=== PATIENT | female | born 2000 | race Caucasian/White ===

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

== ENCOUNTER 2022-06-12 17:58 | Inpatient (IN) | payer BC, OTHER ==
[2022-06-12 20:31] LABS: CARBON DIOXIDE,CO2 11.1 mmol/L (21.0-32.0); POTASSIUM,K 4.6 mmol/L (3.5-5.1)
[2022-06-12] MEDS ORDERED: Sodium Chloride 0.9% 1,000 ML IV ONE ×2 (20:51)
[2022-06-12] MEDS ORDERED: NS + KCl 20mEq/L 1,000 ML IV SCH (21:00)
[2022-06-12] MEDS ORDERED: Ondansetron 4 MG/2 ML SDV IVPUSH ONE (21:56)
[2022-06-12] MEDS ORDERED: Sodium Bicarbonate 8.4% 50 MEQ/50 ML Syringe IVPUSH ONE (22:17)
[2022-06-12 22:42] LABS: CORONAVIRUS COVID-19 NAA NEGATIVE (NEGATIVE); INFLUENZA A NAA NEGATIVE (NEGATIVE); INFLUENZA B NAA NEGATIVE (NEGATIVE)
[2022-06-12] MEDS ORDERED: Insulin Regular in 0.9 % NACL 100 ML ONE (23:38)
[2022-06-12] MEDS: Insulin Regular in 0.9 % NACL 100 ML IV SCH (23:52)
[2022-06-13] MEDS ORDERED: Acetaminophen 325 MG Tab PO PRN (00:12)
[2022-06-13] MEDS ORDERED: Ondansetron 4 MG/2 ML SDV IVPUSH PRN (00:12)
[2022-06-13] MEDS ORDERED: Albuterol/Ipratropium 3.0-0.5 MG/3 ML Neb Soln NEB PRN (00:12)
[2022-06-13] MEDS ORDERED: Lactated Ringers 1,000 ML IV SCH (00:15)
[2022-06-13] MEDS ORDERED: LORazepam 2 MG/ML SDV IVPUSH PRN (00:21)
[2022-06-13] MEDS ORDERED: Pantoprazole 40 MG in Sodium Chloride 0.9% 10 ML IVPUSH ONE (00:30)
[2022-06-13 01:02] LABS: CARBON DIOXIDE,CO2 11.5 mmol/L (21.0-32.0)
[2022-06-13 01:04] LABS: HEMOGLOBIN A1C 10.3 %
[2022-06-13] MEDS ORDERED: Sodium Phosphate 15 mMole/5 ML SDV IV ONE ×2 (01:43→20:15)
[2022-06-13] MEDS ORDERED: Magnesium Sulfate/Water 2 GM in Premix Bag 1 BAG IV SCH (01:45)
[2022-06-13] MEDS ORDERED: Sodium Phosphate 15 MMOLE in Sodium Chloride 0.9% 250 ML IV ONE ×2 (02:00→20:45)
[2022-06-13] MEDS ORDERED: Dextrose 5%-Lactated Ringers 1,000 ML IV SCH (02:30)
[2022-06-13] MEDS ORDERED: Prochlorperazine 5 MG in Sodium Chloride 0.9% 50 ML IV ONE (02:48)
[2022-06-13] MEDS: D5 1/2 NS w/ 20 mEq/L KCl 1,000 ML IV SCH ×3 (03:18→18:50)
[2022-06-13 06:31] LABS: CARBON DIOXIDE,CO2 7.3 mmol/L (21.0-32.0); POTASSIUM,K 3.6 mmol/L (3.5-5.1)
[2022-06-13] MEDS: Enoxaparin 40 MG/0.4 ML Syringe SUBCUT SCH (08:07)
[2022-06-13 12:19] LABS: CARBON DIOXIDE,CO2 12.5 mmol/L (21.0-32.0); POTASSIUM,K 3.3 mmol/L (3.5-5.1)
[2022-06-13 18:37] LABS: CARBON DIOXIDE,CO2 15.4 mmol/L (21.0-32.0); POTASSIUM,K 3.2 mmol/L (3.5-5.1)
[2022-06-13] MEDS ORDERED: Potassium Chloride 100 ML IV SCH (20:15)
[2022-06-13] MEDS ORDERED: Potassium Phosphates 15 MMOLE in Sodium Chloride 0.9% 250 ML IV ONE (21:00)
[2022-06-13] MEDS: Pantoprazole 40 MG in Sodium Chloride 0.9% 10 ML IVPUSH SCH (21:19)
[2022-06-13] MEDS ORDERED: Potassium Chloride 20 MEQ in Premix Bag 1 BAG IV ONE (23:30)
[2022-06-14 00:59] LABS: CARBON DIOXIDE,CO2 14.5 mmol/L (21.0-32.0); POTASSIUM,K 3.3 mmol/L (3.5-5.1)
[2022-06-14 07:40] LABS: CARBON DIOXIDE,CO2 15.2 mmol/L (21.0-32.0); POTASSIUM,K 3.1 mmol/L (3.5-5.1)
[2022-06-14] MEDS ORDERED: Magnesium Sulfate/Water 2 GM/50 ML Premix Bag IV ONE (08:37)
[2022-06-14] MEDS ORDERED: Potassium Chloride 20 MEQ Tab.ER PO ONE ×2 (08:37→23:53)
[2022-06-14] MEDS ORDERED: Magnesium Sulfate/Water 2 GM in Premix Bag 1 BAG IV ONE (08:45)
[2022-06-14] MEDS: Phosphorus #1 250 MG Tab PO SCH ×3 (08:49→17:00)
[2022-06-14] MEDS: Enoxaparin 40 MG/0.4 ML Syringe SUBCUT SCH (08:49)
[2022-06-14] MEDS: Insulin Regular in 0.9 % NACL 100 ML IV SCH (09:53)
[2022-06-14 12:45] LABS: CARBON DIOXIDE,CO2 17.9 mmol/L (21.0-32.0); POTASSIUM,K 3.3 mmol/L (3.5-5.1)
[2022-06-14 17:46] LABS: CARBON DIOXIDE,CO2 18.6 mmol/L (21.0-32.0); POTASSIUM,K 3.7 mmol/L (3.5-5.1)
[2022-06-14] MEDS: Pantoprazole 40 MG in Sodium Chloride 0.9% 10 ML IVPUSH SCH (21:13)
[2022-06-14 23:11] LABS: CARBON DIOXIDE,CO2 20.8 mmol/L (21.0-32.0); POTASSIUM,K 3.1 mmol/L (3.5-5.1)
[2022-06-15] MEDS: Phosphorus #1 250 MG Tab PO SCH ×4 (00:10→18:18)
[2022-06-15 07:15] LABS: CARBON DIOXIDE,CO2 19.8 mmol/L (21.0-32.0); POTASSIUM,K 3.6 mmol/L (3.5-5.1)
[2022-06-15] MEDS: Enoxaparin 40 MG/0.4 ML Syringe SUBCUT SCH (08:11)
[2022-06-15] MEDS ORDERED: Potassium Chloride 20 MEQ Tab.ER PO ONE ×2 (09:19→21:11)
[2022-06-15 12:41] LABS: CARBON DIOXIDE,CO2 15.7 mmol/L (21.0-32.0); POTASSIUM,K 4.2 mmol/L (3.5-5.1)
[2022-06-15 18:47] LABS: CARBON DIOXIDE,CO2 20.1 mmol/L (21.0-32.0); POTASSIUM,K 3.4 mmol/L (3.5-5.1)
[2022-06-15] MEDS: Pantoprazole 40 MG in Sodium Chloride 0.9% 10 ML IVPUSH SCH (21:48)
[2022-06-16 06:08] LABS: CARBON DIOXIDE,CO2 23.7 mmol/L (21.0-32.0); POTASSIUM,K 3.7 mmol/L (3.5-5.1)
[2022-06-16] MEDS: Enoxaparin 40 MG/0.4 ML Syringe SUBCUT SCH (10:27)
== END 2022-06-16 11:50 | disposition home or self-care (01) | DRG 638 ==
LOC: MW.ED 17:58 → MW.ICU 22:25 → MW.MS 06-15 02:29
PROVIDERS: ADMIT Student in an Organized Health Care Education/Training Program; ATTEND Student in an Organized Health Care Education/Training Program
DX: E10.10 Type 1 diabetes mellitus with ketoacidosis without coma (principal); E87.1 Hypo-osmolality and hyponatremia; Z79.4 Long term (current) use of insulin; E87.6 Hypokalemia; E83.42 Hypomagnesemia; E83.39 Other disorders of phosphorus metabolism; K90.0 Celiac disease; Z20.822 Contact with and (suspected) exposure to COVID-19
CPT/HCPCS: 0240U; 36415; 71045; 80048; 80053; 81003; 82009; 82803; 82947; 83036; 83735; 84100; 84703; 85025; 85027; 96374; 99285; 99221; 99231; 99238; A9270-GY; C9113; J0780; J1650; J1815; J2405; J3475; J3480; J3490; J7030; J7050

== ENCOUNTER 2024-03-22 15:26 | Inpatient (IN) | payer SELFPAY ==
[2024-03-22] MEDS: Sodium Chloride 0.9% 1,000 ML IV STA ×4 (15:47→18:55)
[2024-03-22 15:56] LABS: BASE EXCESS VENOUS -9.9 (-2.0-3.0); PH,VENOUS 7.28 (7.31-7.41)
[2024-03-22 15:56] LABS: BASOPHILS ABSOLUTE AUTO 0.02 K/uL (0.00-0.20); BASOPHILS PERCENT AUTO 0.2 % (0.0-1.0); EOSINOPHILS ABSOLUTE AUTO 0.03 K/uL (0.00-0.45); EOSINOPHILS PERCENT AUTO 0.3 % (0.0-6.0); HEMOGLOBIN 15.5 g/dL (12.0-16.0); IMMATURE GRAN ABSOLUTE AUTO 0.13 K/uL (0.00-0.05); IMMATURE GRAN PERCENT AUTO 1.5 % (0.0-0.4); LYMPHOCYTES ABSOLUTE AUTO 1.63 K/uL (1.00-4.80); LYMPHOCYTES PERCENT AUTO 18.4 % (24.0-44.0); MEAN CORPUSCULAR HEMOGLOBIN 31.5 pg (28.0-32.0); MEAN CORPUSCULAR VOLUME 87.4 fL (83.0-99.0); MEAN PLATELET VOLUME 10.2 fL (9.4-12.3); MONOCYTES ABSOLUTE AUTO 0.59 K/uL (0.00-0.80); MONOCYTES PERCENT AUTO 6.7 % (0.0-8.0); NEUTROPHILS ABSOLUTE AUTO 6.46 K/uL (1.80-7.70); NEUTROPHILS PERCENT AUTO 72.9 % (41.0-71.0); PLATELET COUNT,PLT 286 K/uL (150-400); RED BLOOD CELL COUNT 4.92 M/uL (4.10-5.30); WHITE BLOOD CELL COUNT,WBC 8.86 K/uL (3.9-11.3)
[2024-03-22 16:03] LABS: APPEARANCE,URINE CLEAR; BILIRUBIN,URINE NEGATIVE (NEGATIVE); COLOR,URINE YELLOW; GLUCOSE,URINE 500 mg/dL (NEGATIVE); KETONES,URINE >=80 mg/dL (NEGATIVE); LEUKOCYTE ESTERASE,URINE NEGATIVE (NEGATIVE); NITRITE,URINE NEGATIVE (NEGATIVE); OCCULT BLOOD,URINE NEGATIVE (NEGATIVE); PH,URINE 5.5 (5.0-8.0); PROTEIN,URINE NEGATIVE (NEGATIVE); UROBILINOGEN,URINE 0.2 EU/dL (<2.0)
[2024-03-22 16:21] LABS: A/G RATIO 0.9 (0.9-1.6); ALBUMIN 3.7 g/dL (3.4-5.0); BILIRUBIN TOTAL 0.8 mg/dL (0.2-1.0); CALCIUM 9.4 mg/dL (8.5-10.1); CARBON DIOXIDE,CO2 16.5 mmol/L (21.0-32.0); EST CRCL DRUG DOSING (CG) 75.55 mL/min; MAGNESIUM 1.9 mg/dL (1.8-2.4); PHOSPHORUS 4.1 mg/dL (2.6-4.7); PROTEIN TOTAL,TP 7.8 g/dL (6.4-8.2)
[2024-03-22 16:36] LABS: POTASSIUM,K 4.4 mmol/L (3.5-5.1)
[2024-03-22] MEDS ORDERED: 50% Dextrose in Water 50 ML Syringe IVPUSH PRN (17:24)
[2024-03-22] MEDS ORDERED: Glucagon,Human Recombinant 1 MG Vial IM PRN (17:24)
[2024-03-22] MEDS: Insulin Regular, Human 100 Units/ML 10 ML Vial IVPUSH STA (17:53)
[2024-03-22] MEDS: Ondansetron 4 MG/2 ML SDV IVPUSH STA (18:20)
[2024-03-22 18:55] LABS: BASE EXCESS VENOUS -16.1 (-2.0-3.0); BICARBONATE,VENOUS 11 mEQ/mL (22-28); PCO2 VENOUS 30 mmHG (41-51); PH,VENOUS 7.18 (7.31-7.41)
[2024-03-22 18:56] LABS: PO2 VENOUS < 30 mmHG (80-100)
[2024-03-22] MEDS: Dextrose 5% in Water 1,000 ML IV STA (19:06)
[2024-03-22 19:14] LABS: CALCIUM 7.6 mg/dL (8.5-10.1); CARBON DIOXIDE,CO2 12.4 mmol/L (21.0-32.0); CREATININE 0.8 mg/dL (0.6-1.0); EST CRCL DRUG DOSING (CG) 94.44 mL/min
[2024-03-22] MEDS ORDERED: Acetaminophen 325 MG Tab PO PRN (19:20)
[2024-03-22] MEDS ORDERED: Ondansetron 4 MG/2 ML SDV IVPUSH PRN (19:20)
[2024-03-22] MEDS ORDERED: Melatonin 3 MG Tab PO PRN (19:20)
[2024-03-22] MEDS: Sodium Chloride 0.9% 1,000 ML IV SCH (19:24)
[2024-03-22] MEDS ORDERED: Oxymetazoline 0.05% Nasal Spray 30 ML Bottle NAS PRN (19:25)
[2024-03-22] MEDS: Dextrose 5%-0.9% NaCl 1,000 ML IV STA (19:26)
[2024-03-22] MEDS ORDERED: Enoxaparin 40 MG/0.4 ML Syringe SUBCUT SCH (19:30)
[2024-03-22] MEDS: Insulin Regular in 0.9 % NACL 100 ML IV SCH (19:41)
[2024-03-22] MEDS: Enoxaparin 40 MG/0.4 ML Syringe SUBCUT SCH (21:29)
[2024-03-22] MEDS: Dextrose 5%-0.45% NaCl 1,000 ML IV SCH (22:47)
[2024-03-22 22:48] LABS: CALCIUM 7.5 mg/dL (8.5-10.1); CARBON DIOXIDE,CO2 9.8 mmol/L (21.0-32.0); CREATININE 0.8 mg/dL (0.6-1.0); EST CRCL DRUG DOSING (CG) 136.19 mL/min; MAGNESIUM 1.5 mg/dL (1.8-2.4); PHOSPHORUS 2.6 mg/dL (2.6-4.7)
[2024-03-23 02:31] LABS: CALCIUM 7.5 mg/dL (8.5-10.1); CARBON DIOXIDE,CO2 14.5 mmol/L (21.0-32.0); CREATININE 0.8 mg/dL (0.6-1.0); EST CRCL DRUG DOSING (CG) 136.19 mL/min; MAGNESIUM 1.5 mg/dL (1.8-2.4); PHOSPHORUS 2.9 mg/dL (2.6-4.7); POTASSIUM,K 3.9 mmol/L (3.5-5.1)
[2024-03-23 05:49] LABS: BASOPHILS ABSOLUTE AUTO 0.02 K/uL (0.00-0.20); BASOPHILS PERCENT AUTO 0.4 % (0.0-1.0); EOSINOPHILS ABSOLUTE AUTO 0.11 K/uL (0.00-0.45); HEMATOCRIT 36.2 % (37.0-47.0); HEMOGLOBIN 12.9 g/dL (12.0-16.0); IMMATURE GRAN ABSOLUTE AUTO 0.01 K/uL (0.00-0.05); IMMATURE GRAN PERCENT AUTO 0.2 % (0.0-0.4); LYMPHOCYTES ABSOLUTE AUTO 2.79 K/uL (1.00-4.80); LYMPHOCYTES PERCENT AUTO 50.4 % (24.0-44.0); MEAN CORPUSCULAR HEMOGLOBIN 31.2 pg (28.0-32.0); MEAN CORPUSCULAR HGB CONC 35.6 g/dL (32.0-36.0); MEAN CORPUSCULAR VOLUME 87.7 fL (83.0-99.0); MEAN PLATELET VOLUME 9.6 fL (9.4-12.3); MONOCYTES ABSOLUTE AUTO 0.45 K/uL (0.00-0.80); MONOCYTES PERCENT AUTO 8.1 % (0.0-8.0); NEUTROPHILS ABSOLUTE AUTO 2.16 K/uL (1.80-7.70); NEUTROPHILS PERCENT AUTO 38.9 % (41.0-71.0); PLATELET COUNT,PLT 236 K/uL (150-400); RED BLOOD CELL COUNT 4.13 M/uL (4.10-5.30); WHITE BLOOD CELL COUNT,WBC 5.54 K/uL (3.9-11.3)
[2024-03-23 06:14] LABS: CALCIUM 7.7 mg/dL (8.5-10.1); CARBON DIOXIDE,CO2 16.8 mmol/L (21.0-32.0); CREATININE 0.8 mg/dL (0.6-1.0); EST CRCL DRUG DOSING (CG) 132.59 mL/min; MAGNESIUM 1.5 mg/dL (1.8-2.4); POTASSIUM,K 3.6 mmol/L (3.5-5.1)
[2024-03-23] MEDS ORDERED: 50% Dextrose in Water 50 ML Syringe IVPUSH PRN (08:25)
[2024-03-23] MEDS: Potassium Chloride 20 MEQ Tab.ER PO ONE (09:08)
[2024-03-23] MEDS: Magnesium Sulfate/Water 4 GM in Premix Bag 1 BAG IV ONE (09:11)
[2024-03-23] MEDS: Insulin Glargine,Hum.Rec.Anlog 100 UNIT/ML 3 ML Pen SUBCUT STA (09:22)
[2024-03-23] MEDS: Insulin Aspart 100 Units/ML 3 ML Pen SUBCUT SCH (09:24)
[2024-03-23 10:52] LABS: HEMOGLOBIN A1C 9.4 %
[2024-03-23 11:11] LABS: CALCIUM 7.8 mg/dL (8.5-10.1); CARBON DIOXIDE,CO2 18.1 mmol/L (21.0-32.0); CREATININE 0.6 mg/dL (0.6-1.0); EST CRCL DRUG DOSING (CG) 125.92 mL/min; MAGNESIUM 2.6 mg/dL (1.8-2.4); POTASSIUM,K 3.8 mmol/L (3.5-5.1)
== END 2024-03-23 13:45 | disposition home or self-care (01) | DRG 639 ==
LOC: MW.ED 15:26 → MW.ICU 19:27
PROVIDERS: ADMIT Family Medicine; ATTEND Family Medicine
DX: E10.10 Type 1 diabetes mellitus with ketoacidosis without coma (principal); Z91.048 Other nonmedicinal substance allergy status; Z79.899 Other long term (current) drug therapy; Z79.4 Long term (current) use of insulin; F41.9 Anxiety disorder, unspecified; Z98.890 Other specified postprocedural states; K90.0 Celiac disease; Z96.651 Presence of right artificial knee joint; R09.81 Nasal congestion
CPT/HCPCS: 36415; 80048; 80053; 81003; 82009; 82803; 82947; 83036; 83690; 83735; 84100; 84703; 85025; 96361; 96374; 99285; 99285-25; A9270-GY; J1650; J1815; J1815-GY; J2405; J3475; J7030; J7042; J7060